=== PATIENT | female | born 1965 | race American Indian/Alaskan Native ===

== ENCOUNTER 2018-11-04 12:51 | Inpatient (IN) | payer OTHER ==
[2018-11-04] VITALS (12 sets, daily range): BP systolic 83–122; BP diastolic 39–73; TEMP 97.7–98.2; Ht 152.4 cm; Wt 25.0 kg
[~2018-11-04] VITALS: Ht 152.4 cm; Wt 25.0 kg
[2018-11-04 14:19] LABS: PLATELET COUNT 467 K/uL (152-353)
[2018-11-04 14:36] LABS: POTASSIUM 2.6 mmol/L (3.6-5.2)
[2018-11-04 23:43] LABS: POTASSIUM 2.7 mmol/L (3.6-5.2)
[2018-11-05] VITALS (12 sets, daily range): BP systolic 103–144; BP diastolic 53–77; TEMP 97.6–98.7
[2018-11-05 06:26] LABS: PLATELET COUNT 397 K/uL (152-353)
[2018-11-05 06:50] LABS: POTASSIUM 2.6 mmol/L (3.6-5.2); SODIUM 126 mmol/L (136-145)
[2018-11-06] VITALS (21 sets, daily range): BP systolic 76–136; BP diastolic 47–72; TEMP 97–98.4
[2018-11-06 06:01] LABS: PLATELET COUNT 375 K/uL (152-353)
[2018-11-07 00:01] VITALS: BP 124/65; TEMP 98.2
[2018-11-07 01:00] VITALS: BP 104/71
[2018-11-07 02:00] VITALS: BP 110/64
[2018-11-07 03:00] VITALS: BP 109/66
[2018-11-07 04:00] VITALS: BP 98/59; TEMP 98.2
[2018-11-07 05:00] VITALS: BP 128/74
[2018-11-07 12:13] LABS: PLATELET COUNT 397 K/uL (152-353)
[2018-11-07 12:52] LABS: POTASSIUM 3.8 mmol/L (3.6-5.2)
== END 2018-11-07 14:17 | disposition home or self-care (01) | DRG 682 ==
LOC: ED 12:51 → ICU 17:20 → ED 17:30 → ICU 17:30
PROVIDERS: Family Medicine; Internal Medicine; ADMIT Family Medicine
DX: N17.8 Other acute kidney failure (principal); E43 Unspecified severe protein-calorie malnutrition; E87.1 Hypo-osmolality and hyponatremia; N39.0 Urinary tract infection, site not specified; B37.0 Candidal stomatitis; R64 Cachexia; E87.6 Hypokalemia; E86.0 Dehydration; R13.19 Other dysphagia; R62.7 Adult failure to thrive; D64.89 Other specified anemias; J44.9 Chronic obstructive pulmonary disease, unspecified; I95.89 Other hypotension
CPT/HCPCS: 36415; 80048; 80053; 80074; 81000; 82150; 82550; 82570; 83690; 83735; 83880; 83930; 83935; 84132; 84133; 84300; 84484; 85027; 87077; 87086; 87088; 87186; 87535; 93005; 96360; 96361; 96365; 99285; J0696; J1650

== ENCOUNTER 2018-12-10 14:22 | Emergency (ER) | payer OTHER ==
[~2018-12-10] VITALS: Ht 152.4 cm; Wt 24.9 kg
[2018-12-10 14:24] VITALS: BP 82/49; TEMP 98.1
== END 2018-12-10 15:25 | disposition home or self-care (01) ==
LOC: ED 14:22
PROC: 0T9B70Z Drainage of Bladder with Drainage Device, Via Natural or Artificial Opening (ICD-10-PCS; principal; 2018-12-10)
DX: R33.8 Other retention of urine (principal)
CPT/HCPCS: 51702; 99282

== ENCOUNTER → 2019-02-16 22:40 | Outpatient (CLI) | payer OTHER | END | disposition home or self-care (01) | LOC: AMB 22:40 | DX: I46.9 Cardiac arrest, cause unspecified ==